=== PATIENT | male | born 1975 | race Caucasian/White ===

== ENCOUNTER 2016-08-21 21:05 | Emergency (ER) | payer BC ==
[2016-08-21] MEDS ORDERED: Hydromorphone 1 mg/ml Ampule IV ONE ×2 (21:17→21:36)
[2016-08-21] MEDS ORDERED: BENADRYL 50 MG/ML IV ONE (21:17)
[2016-08-21] MEDS ORDERED: Sodium Chloride 0.9% 1000 ML 1,000 ML IV STA (21:17)
[2016-08-21] MEDS ORDERED: Zofran 4 MG/2 ML VIAL IV ONE (21:17)
[2016-08-21] MEDS ORDERED: Zofran 4 MG/2 ML VIAL ONE (21:20)
[2016-08-21] MEDS ORDERED: BENADRYL 50 MG/ML ONE (21:20)
[2016-08-21] MEDS ORDERED: Sodium Chloride 0.9% 1000 ML 1,000 ML ONE (21:21)
[2016-08-21] MEDS ORDERED: Hydromorphone 1 mg/ml Ampule ONE ×2 (21:21→21:46)
--- NOTE | 2016-08-21 21:23 | ERPHSYRPT ---
- History of Present Illness Time Seen by Provider: 08/21/16 21:08 Source: patient Patient Subjective Stated Complaint: patient thinks he has kidney stones Triage Nursing Assessment: flank pain down right side and into the front x 2 hours, patient has a history of kidney stones. patient was at home sitting and began experiencing sharp pain in back radiating to the front got very severe and came into the ER. Physician History: CC: right flank pain Hx: 40 y/o patient of Dr Leonard with remote hx of kidney stone disease. He noted rather severe right flank pain radiating to the groin for the past 3 hours. Dribbling urine. No fever or chills. Some nausea without vomiting. No hematuria. Timing/Duration: today Severity: severe Allergies/Adverse Reactions: No Known Drug Allergies Allergy (Unverified 04/03/13 02:51) Home Medications: No Home Meds 04/03/13 [History] Hx Tetanus, Diphtheria Vaccination/Date Given: Yes Hx Influenza Vaccination/Date Given: Yes Hx Pneumococcal Vaccination/Date Given: No Immunizations Up to Date: Yes - Review of Systems Constitutional: No Fever, No Chills Eyes: No Symptoms Ears, Nose, & Throat: No Symptoms Respiratory: No Cough Cardiac: No Chest Pain Abdominal/Gastrointestinal: Nausea, No Abdominal Pain, No Vomiting Genitourinary Symptoms: Hesitancy, Flank Pain (right), No Dysuria, No Hematuria , No Testicle Pain Skin: No Rash Neurological: No Headache All Other Systems: Reviewed and Negative - Past Medical History Pertinent Past Medical History: Yes Neurological History: No Pertinent History ENT History: No Pertinent History Cardiac History: No Pertinent History Respiratory History: No Pertinent History Endocrine Medical History: No Pertinent History Musculoskeletal History: No Pertinent History GI Medical History: No Pertinent History History: Other Psycho-Social History: No Pertinent History Male Reproductive Disorders: No Pertinent History Other Medical History: Remote Kidney Stone - Past Surgical History Past Surgical History: No Neuro Surgical History: No Pertinent History Cardiac: No Pertinent History Respiratory: No Pertinent History Gastrointestinal: No Pertinent History Genitourinary: No Pertinent History Musculoskeletal: No Pertinent History Male Surgical History: No Pertinent History - Social History Smoking Status: Current every day smoker Exposure to second hand smoke: No Drug Use: none Patient Lives Alone: No - Nursing Vital Signs Nursing Vital Signs: Initial Vital Signs Temperature 98.2 F Temperature Source Oral Pulse Rate 81 Respiratory Rate 20 Blood Pressure [Right Arm] 142/96 Pain Intensity [Anterior/ 9 Posterior Back] Pain Intensity 2 - Physical Exam General Appearance: alert, obese Eye Exam: PERRL/EOMI, No scleral icterus Ears, Nose, Throat Exam: normal ENT inspection, moist mucous membranes Neck Exam: normal inspection Respiratory Exam: normal breath sounds, lungs clear Cardiovascular Exam: regular rate/rhythm Gastrointestinal/Abdomen Exam: soft, No tenderness, No distention, No mass, No guarding Male Genitalia Exam: normal genitalia, No hernia, No testicular tenderness Back Exam: normal inspection, CVA tenderness (right) Extremity Exam: normal inspection, normal range of motion Neurologic Exam: alert, oriented x 3, cooperative, sensation nml, No motor deficits Skin Exam: warm, dry, No rash SpO2 Interpretation: normal SpO2: 97 Oxygen Delivery: Room Air - Course Nursing assessment & vital signs reviewed: Yes Ordered Tests: Active Orders 24 hr Category Date Time Status IV Insertion STAT Care 08/21/16 21:17 Active ABDOMEN AND PELVIS W/0 CONTRAS [CT] Stat Exams 08/21/16 21:18 Taken CBC W DIFF Stat Lab 08/21/16 21:24 Completed CMP Stat Lab 08/21/16 21:24 Completed UA W/ MICROSCOPIC Stat Lab 08/21/16 21:20 Completed Medication Summary Generic Name Dose Route Start Last Admin Trade Name Freq PRN Reason Stop Dose Admin Sodium Chloride 1,000 mls @ 999 mls/hr 08/21/16 21:17 08/21/16 21:27 Sodium Chloride 0.9% 1000 Ml IV 08/21/16 22:17 999 mls/hr .Q1H1M STA Administration Discontinued Medications Generic Name Dose Route Start Last Admin Trade Name Freq PRN Reason Stop Dose Admin Hydrocodone Bitart/Acetaminophen 2 tab 08/21/16 22:07 Corinne 5/325 Mg PO 08/21/16 22:08 SENT HOME W/ PATIENT ONE Diphenhydramine HCl 25 mg 08/21/16 21:17 08/21/16 21:26 Benadryl 50 Mg/Ml IV 08/21/16 21:18 25 mg STAT ONE Administration Diphenhydramine HCl Confirm 08/21/16 21:20 Benadryl 50 Mg/Ml Administered 08/21/16 21:21 Dose 50 mg .ROUTE .STK-MED ONE Hydromorphone HCl 1 mg 08/21/16 21:17 08/21/16 21:26 Hydromorphone 1 Mg/Ml Ampule IV 08/21/16 21:18 1 mg STAT ONE Administration Hydromorphone HCl Confirm 08/21/16 21:21 Hydromorphone 1 Mg/Ml Ampule Administered 08/21/16 21:22 Dose 1 mg .ROUTE .STK-MED ONE Hydromorphone HCl 1 mg 08/21/16 21:36 08/21/16 21:48 Hydromorphone 1 Mg/Ml Ampule IV 08/21/16 21:37 1 mg STAT ONE Administration Hydromorphone HCl Confirm 08/21/16 21:46 Hydromorphone 1 Mg/Ml Ampule Administered 08/21/16 21:47 Dose 1 mg .ROUTE .STK-MED ONE Sodium Chloride Confirm 08/21/16 21:21 Sodium Chloride 0.9% 1000 Ml Administered 08/21/16 21:22 Dose 1,000 mls @ ud .ROUTE .STK-MED ONE Ketorolac Tromethamine 30 mg 08/21/16 22:07 Toradol 30 Mg Injection IV 08/21/16 22:08 STAT ONE Ondansetron HCl 4 mg 08/21/16 21:17 08/21/16 21:26 Zofran 4 Mg/2 Ml Vial IV 08/21/16 21:18 4 mg STAT ONE Administration Ondansetron HCl Confirm 08/21/16 21:20 Zofran 4 Mg/2 Ml Vial Administered 08/21/16 21:21 Dose 4 mg .ROUTE .STK-MED ONE Lab/Rad Data: Laboratory Result Diagrams 08/21/16 21:24 08/21/16 21:24 Laboratory Results 08/21/16 08/21/16 08/21/16 Range/Units 21:24 21:24 21:20 WBC 11.2 H (4.0-10.5) K/mm3 RBC 5.15 (4.1-5.6) M/mm3 Hgb 15.7 (12.5-18.0) gm/dl Hct 48.1 (42-50) % MCV 93.4 (78-100) fl MCH 30.5 (26-32) pg MCHC 32.6 (32-36) g/dl RDW 13.2 (11.5-14.0) % Plt Count 203 (150-450) K/mm3 MPV 10.6 H (6-9.5) fl Gran % 62.6 (36.0-66.0) % Lymphocytes % 26.1 (24.0-44.0) % Monocytes % 8.9 (0.0-12.0) % Eosinophils % 2.0 (0.00-5.0) % Basophils % 0.4 (0.0-0.4) % Basophils # 0.04 (0-0.4) Sodium 141 (136-145) mEq/L Potassium 4.2 (3.5-5.1) mEq/L Chloride 105 (98-107) mEq/L Carbon Dioxide 28.9 (21-32) mEq/L Anion Gap 10.9 (5-15) MEQ/L BUN 17 (9-20) mg/dL Creatinine 1.13 (0.55-1.30) mg/dl Estimated GFR > 60 ML/MIN Glucose 126 H (70-110) MG/DL Calcium 9.4 (8.5-10.1) mg/dL Total Bilirubin 0.30 (0.2-1.0) mg/dL AST 26 (15-37) U/L ALT 63 (12-78) U/L Alkaline Phosphatase 87 (46-116) U/L Serum Total Protein 8.0 (6.4-8.2) gm/dL Albumin 3.8 (3.4-5.0) g/dL Ur Collection Type CCMS Urine Color YELLOW (YELLOW) Urine Appearance CLEAR (CLEAR) Urine pH 5.0 (5-6) Ur Specific [place] 1.025 (1.005-1.025) Urine Protein NEGATIVE (Negative) Urine Ketones NEGATIVE (NEGATIVE) Urine Blood 50 (0-5) Jefry/ul Urine Nitrite NEGATIVE (NEGATIVE) Urine Bilirubin NEGATIVE (NEGATIVE) Urine Urobilinogen NORMAL (0-1) mg/dL Ur Leukocyte Esterase NEGATIVE (NEGATIVE) Urine Microscopic RBC 2-5 (0-2) /HPF Urine Microscopic WBC 0-2 (0-5) /HPF Ur Epithelial Cells FEW (FEW) /HPF Urine Glucose NEGATIVE (NEGATIVE) mg/dL Specimen Received 08-21-160 - Progress Progress Note: 08/21/16 21:[address] to evaluate renal stone disease. 08/21/16 22:01 CT abd/pelvis: titus 10:00 PM 08/21/2016: Compared to 04/03/13. New 2-3 mm R UVJ stone producing partial obstruction w/ minimal hydroureter & moderate hydronephrosis. Remaining abd/pel negative. Pain improved with meds. Will release with kidney stone instructions. Counseled pt/family regarding: lab results, diagnosis, need for follow-up, rad results - Departure Time of Disposition: 22:10 Departure Disposition: Home Clinical Impression: Renal colic on right side, right UVJ stone Condition: Stable Critical Care Time: No Referrals: SARA LEONARD [Primary Care Provider] - Instructions: Kidney Stones Additional Instructions: Return for fever, recurrent vomiting, uncontrolled pain or concerns. Rx norco- no driving. Rx zofran for nausea. Follow up with Dr Leonard in 1-2 days. Strain urine to collect stone. Prescriptions: Ondansetron [Zofran Odt] 4 mg PO Q6HPRN PRN #10 tab.rapdis PRN Reason: Nausea/Vomiting Hydrocodone Bit/Acetaminophen [Corinne 5-325 Tablet] 1 each PO Q4-6HPRN PRN #20 tablet PRN Reason: Pain
[2016-08-21 21:30] LABS: BASOPHIL % 0.4 % (0.0-0.4); Granulocytes % 62.6 % (36.0-66.0); Lymphocytes % 26.1 % (24.0-44.0); Mean Cell Volume 93.4 fl (78-100); Mean Corpuscular Hemoglobin 30.5 pg (26-32); Mean Platelet Volume 10.6 fl (6-9.5); Monocytes % 8.9 % (0.0-12.0); Platelet Count 203 K/mm3 (150-450); Red Blood Count 5.15 M/mm3 (4.1-5.6); Red Cell Distribution Width 13.2 % (11.5-14.0); White Blood Count 11.2 K/mm3 (4.0-10.5)
[2016-08-21 21:31] LABS: Bilirubin NEGATIVE (NEGATIVE); Blood 50 Ery/ul (0-5); Collection Type CCMS; Glucose NEGATIVE (NEGATIVE); Leukocyte Esterase NEGATIVE (NEGATIVE)
[2016-08-21 21:38] LABS: ADD URINE CULTURE? NO (NO); COMPLETE URINE MICROSCOPIC? YES; Epithelial Cells FEW /HPF (FEW); WBC 0-2 /HPF (0-5)
[2016-08-21 22:07] LABS: ALBUMIN 3.8 g/dL (3.4-5.0); ALKALINE PHOSPHATASE 87 U/L (46-116); ANION GAP 10.9 MEQ/L (5-15); BLOOD UREA NITROGEN 17 mg/dL (9-20); CHLORIDE 105 mEq/L (98-107); Carbon Dioxide 28.9 mEq/L (21-32); Glucose 126 MG/DL (70-110); Potassium 4.2 mEq/L (3.5-5.1); SGOT/AST 26 U/L (15-37); SGPT/ALT 63 U/L (12-78); SODIUM 141 mEq/L (136-145)
[2016-08-21] MEDS ORDERED: NORCO 5/325 MG PO ONE (22:07)
[2016-08-21] MEDS ORDERED: TORAdol 30 mg Injection IV ONE (22:07)
[2016-08-21] MEDS ORDERED: TORAdol 30 mg Injection ONE (22:10)
[2016-08-21] MEDS ORDERED: NORCO 5/325 MG ONE (22:11)
[2016-08-21 22:38] VITALS: BP 137/76; PULSE 78; O2SAT 98
--- NOTE | 2016-08-22 08:42 | XRAY ---
Indication: Right flank pain. Nausea. History of kidney stone. Multiple contiguous axial images obtained through the abdomen and pelvis without contrast as ordered. Comparison: CT renal stone study April 03, 2013. Lung bases again demonstrates minimal bibasilar dependent atelectasis. Heart is not enlarged. There is now a 2-3 mm right UVJ calculus. The more proximal right ureter is slightly prominent and there is moderate hydronephrosis without perinephric fluid/stranding consistent with partial obstruction. No renal calculus or evidence for obstructive uropathy in the left system. Stomach is distended with food. Noncontrasted bowel loops appear nonobstructed. Normal appendix. No free fluid/air. Remaining liver, gallbladder, pancreas, spleen, adrenal glands, bladder, and aorta appear unremarkable for noncontrast exam. Osseous structures intact. Impression: New 2-3 mm right UVJ calculus producing partial obstruction. CT DI 23.68
== END 2016-08-21 22:37 | disposition home or self-care (01) ==
LOC: ED 21:05
DX: N23 Unspecified renal colic (principal); N20.0 Calculus of kidney; R10.9 Unspecified abdominal pain
CPT/HCPCS: 36000; 36415; 74176; 80053; 81000; 85025; 96360; 96374; 96375; 99284; J1170; J1200; J1885; J2405; A9270-GY

== ENCOUNTER 2019-02-24 08:16 | Emergency (ER) | payer BC ==
[2019-02-24] MEDS ORDERED: Pepcid 20 MG VIAL IV ONE ×2 (08:38→08:44)
[2019-02-24] MEDS ORDERED: Sodium Chloride 0.9% 1000 ML 1,000 ML IV STA (08:38)
[2019-02-24] MEDS ORDERED: BENADRYL 50 MG/ML IV ONE (08:38)
[2019-02-24] MEDS ORDERED: MORPHINE SULFATE 4 MG INJ IV ONE (08:38)
[2019-02-24] MEDS ORDERED: Sodium Chloride 0.9% 1000 ML 1,000 ML ONE (08:44)
[2019-02-24] MEDS ORDERED: MORPHINE SULFATE 4 MG INJ ONE (08:44)
[2019-02-24] MEDS ORDERED: BENADRYL 50 MG/ML ONE (08:44)
--- NOTE | 2019-02-24 08:51 | ERPHSYRPT ---
- History of Present Illness Time Seen by Provider: 02/24/19 08:30 Historian: patient Exam Limitations: no limitations Patient Subjective Stated Complaint: pt here for pain to right side of abd, for 2 days now, worse with movement, no fever or nausea Triage Nursing Assessment: pt alert, walked in, resp easy, skin w/d/p. abd soft tender to touch Physician History: Patient has had non-traumatic RUQ abdominal pain for 2 days. Pain worsened in the evening of 02/23/2019. No evaluation prior to coming into the emergency department. Timing/Duration: day(s) (2) Activities at Onset: none Quality: aching, stabbing Abdominal Pain Onset Location: RUQ Pain Radiation: no radiation Severity of Pain-Max: severe Severity of Pain-Current: moderate Modifying Factors: Worsens With: movement Associated Symptoms: No back, No chest pain, No diaphoresis, No diarrhea, No fever/chills, No fatigue, No headache, No loss of appetite, No nausea, No neck pain, No rash, No shortness of breath, No syncope, No testicular pain, No vomiting, No weakness Previous symptoms: no prior history, no recent treatment Allergies/Adverse Reactions: No Known Drug Allergies Allergy (Verified 02/24/19 08:27) Hx Tetanus, Diphtheria Vaccination/Date Given: Yes Hx Influenza Vaccination/Date Given: No Hx Pneumococcal Vaccination/Date Given: No Immunizations Up to Date: Yes - Review of Systems Constitutional: No Fever, No Chills Eyes: No Eye Pain, No Eye Redness, No Vision Changes Ears, Nose, & Throat: No Mouth Pain, No Mouth Swelling, No Painful Swallowing Respiratory: No Cough, No Dyspnea Cardiac: No Chest Pain, No Edema, No Syncope Abdominal/Gastrointestinal: Abdominal Pain, No Nausea, No Vomiting, No Diarrhea , No Hematemesis, No Hematochezia, No Melena Genitourinary Symptoms: No Dysuria, No Hematuria, No Flank Pain Musculoskeletal: No Back Pain, No Neck Pain Skin: No Rash Neurological: No Dizziness, No Focal Weakness, No Sensory Changes Psychological: No Symptoms Endocrine: No Polydipsia, No Excessive Sweating Hematologic/Lymphatic: No Easy Bleeding, No Easy Bruising All Other Systems: Reviewed and Negative - Past Medical History Pertinent Past Medical History: No Neurological History: No Pertinent History ENT History: No Pertinent History Cardiac History: No Pertinent History Respiratory History: No Pertinent History Endocrine Medical History: No Pertinent History Musculoskeletal History: No Pertinent History GI Medical History: No Pertinent History History: Other Psycho-Social History: No Pertinent History Male Reproductive Disorders: No Pertinent History Other Medical History: Remote Kidney Stone - Past Surgical History Past Surgical History: No Neuro Surgical History: No Pertinent History Cardiac: No Pertinent History Respiratory: No Pertinent History Gastrointestinal: No Pertinent History Genitourinary: No Pertinent History Musculoskeletal: No Pertinent History Male Surgical History: Vasectomy - Social History Smoking Status: Current every day smoker Exposure to second hand smoke: Yes Drug Use: none Patient Lives Alone: Yes - Nursing Vital Signs Nursing Vital Signs: Initial Vital Signs Temperature 98.1 F 02/24/19 08:23 Pulse Rate 94 H 02/24/19 08:23 Respiratory Rate 18 02/24/19 08:23 Blood Pressure 138/111 02/24/19 08:23 O2 Sat by Pulse Oximetry 97 02/24/19 08:23 Pain Scale Pain Intensity 5 - Physical Exam General Appearance: no apparent distress, alert Eye Exam: PERRL/EOMI, eyes nml inspection, No scleral icterus, No pale conjunctivae Ears, Nose, Throat Exam: normal ENT inspection, pharynx normal, moist mucous membranes Neck Exam: normal inspection, non-tender, supple, full range of motion, No Brudzinski, No JVD, No lymphadenopathy Respiratory Exam: normal breath sounds, lungs clear, No respiratory distress, No diminished breath sounds, No accessory muscle use, No crackles/rales, No rhonchi, No wheezing, No stridor Cardiovascular Exam: regular rate/rhythm, normal heart sounds, capillary refill <2 sec Gastrointestinal/Abdomen Exam: soft, normal bowel sounds, tenderness (RUQ only) , No distention, No mass, No guarding, No ecchymosis, No rebound Back Exam: normal inspection, normal range of motion, No CVA tenderness, No vertebral tenderness Extremity Exam: normal inspection, normal range of motion, pelvis stable Neurologic Exam: alert, oriented x 3, cooperative, hide worker II-XII nml as tested, normal mood/affect, sensation nml, No motor deficits Skin Exam: normal color, warm, dry, No rash, No jaundice SpO2 Interpretation: normal SpO2: 97 O2 Delivery: Room Air - Course Nursing assessment & vital signs reviewed: Yes EKG Interpreted by Me: RATE (78), Sinus Rhythm, NORMAL AXIS, NORMAL INTERVALS, NORMAL QRS, NORMAL ST-T, Other (No previous EKG for comparison) - Radiology Ultrasound Exam Gallbladder Ultrasound: Other (per the radiologist's interpretation: Gallbladder wall thickening without cholelithiasis or biliary distention. No pericholecystic fluid. Fatty liver.) Ordered Tests: Active Orders 24 hr Category Date Time Status EKG-ER Only STAT Care 02/24/19 08:38 Active IV Insertion STAT Care 02/24/19 08:38 Active NPO (ED) STAT Care 02/24/19 08:38 Active GALLBLADDER [US] Stat Exams 02/24/19 08:40 Completed AMYLASE Stat Lab 02/24/19 08:50 Completed CBC W DIFF Stat Lab 02/24/19 08:38 Completed CMP Stat Lab 02/24/19 08:50 Completed LIPASE Stat Lab 02/24/19 08:50 Completed Lactic Acid Stat Lab 02/24/19 08:38 Completed PROTIME WITH INR Stat Lab 02/24/19 08:50 Completed TROPONIN Q3H Lab 02/24/19 08:50 Completed TROPONIN Q3H Lab 02/24/19 11:45 Ordered TROPONIN Q3H Lab 02/24/19 14:45 Ordered TROPONIN Q3H Lab 02/24/19 17:45 Ordered TROPONIN Q3H Lab 02/24/19 20:45 Ordered UA W/RFX UR CULTURE Stat Lab 02/24/19 09:05 Completed Medication Summary Discontinued Medications Generic Name Dose Route Start Last Admin Trade Name Freq PRN Reason Stop Dose Admin Diphenhydramine HCl 25 mg 02/24/19 08:38 02/24/19 08:47 Benadryl 50 Mg/Ml IV 02/24/19 08:39 25 mg STAT ONE Administration Diphenhydramine HCl Confirm 02/24/19 08:44 Benadryl 50 Mg/Ml Administered 02/24/19 08:45 Dose 50 mg .ROUTE .STK-MED ONE Famotidine 20 mg 02/24/19 08:38 02/24/19 08:47 Pepcid 20 Mg Vial IV 02/24/19 08:39 20 mg STAT ONE Administration Famotidine Confirm 02/24/19 08:44 Pepcid 20 Mg Vial Administered 02/24/19 08:45 Dose 20 mg IV .STK-MED ONE Sodium Chloride 1,000 mls @ 999 mls/hr 02/24/19 08:38 02/24/19 08:48 Sodium Chloride 0.9% 1000 Ml IV 02/24/19 09:38 999 mls/hr .Q1H1M STA Administration Sodium Chloride Confirm 02/24/19 08:44 Sodium Chloride 0.9% 1000 Ml Administered 02/24/19 08:45 Dose 1,000 mls @ ud .ROUTE .STK-MED ONE Morphine Sulfate 4 mg 02/24/19 08:38 02/24/19 08:47 Morphine Sulfate 4 Mg Inj IV 02/24/19 08:39 4 mg STAT ONE Administration Morphine Sulfate Confirm 02/24/19 08:44 Morphine Sulfate 4 Mg Inj Administered 02/24/19 08:45 Dose 4 mg .ROUTE .STK-MED ONE Lab/Rad Data: Laboratory Result Diagrams 02/24/19 08:38 02/24/19 08:50 Laboratory Results 02/24/19 02/24/19 02/24/19 Range/Units 09:05 08:50 08:50 WBC (4.0-10.5) K/mm3 RBC (4.1-5.6) M/mm3 Hgb (12.5-18.0) gm/dl Hct (42-50) % MCV (78-100) fl MCH (26-32) pg MCHC (32-36) g/dl RDW (11.5-14.0) % Plt Count (150-450) K/mm3 MPV (6-9.5) fl Gran % (36.0-66.0) % Eos # (Auto) (0-0.5) Absolute Lymphs (auto) (1.0-4.6) Absolute Monos (auto) (0.0-1.3) Lymphocytes % (24.0-44.0) % Monocytes % (0.0-12.0) % Eosinophils % (0.00-5.0) % Basophils % (0.0-0.4) % Absolute Granulocytes (1.4-6.9) Basophils # (0-0.4) PT 12.7 (8.83-12.87) SECONDS INR 1.12 (0.8-3.0) Sodium (137-145) mmol/L Potassium (3.5-5.1) mmol/L Chloride (98-107) mmol/L Carbon Dioxide (22-30) mmol/L Anion Gap (5-15) MEQ/L BUN (9-20) mg/dL Creatinine (0.66-1.25) mg/dL Estimated GFR ML/MIN Glucose (74-106) mg/dL Lactic Acid (0.4-2.0) Calcium (8.4-10.2) mg/dL Total Bilirubin (0.2-1.3) mg/dL AST (17-59) U/L ALT (0-50) U/L Alkaline Phosphatase (38-126) U/L Troponin I < 0.012 (0.000-0.034) ng/mL Serum Total Protein (6.3-8.2) g/dL Albumin (3.5-5.0) g/dL Amylase (30-110) U/L Lipase (23-300) U/L Urine Color YELLOW (YELLOW) Urine Appearance CLEAR (CLEAR) Urine pH 6.0 (5-6) Ur Specific [place] 1.020 (1.005-1.025) Urine Protein NEGATIVE (Negative) Urine Ketones NEGATIVE (NEGATIVE) Urine Blood SMALL (0-5) Jefry/ul Urine Nitrite NEGATIVE (NEGATIVE) Urine Bilirubin NEGATIVE (NEGATIVE) Urine Urobilinogen 2 (0-1) mg/dL Ur Leukocyte Esterase NEGATIVE (NEGATIVE) Urine WBC (Auto) NONE (0-5) /HPF Urine RBC (Auto) 6-10 (0-2) /HPF U Epithel Cells (Auto) NONE (FEW) /HPF Urine Bacteria (Auto) RARE (NEGATIVE) /HPF Urine Mucus (Auto) SLIGHT (NEGATIVE) /HPF Urine Culture Reflexed NO (NO) Urine Glucose NEGATIVE (NEGATIVE) mg/dL 02/24/19 02/24/19 02/24/19 Range/Units 08:50 08:38 08:38 WBC 12.6 H (4.0-10.5) K/mm3 RBC 4.94 (4.1-5.6) M/mm3 Hgb 15.3 (12.5-18.0) gm/dl Hct 47.0 (42-50) % MCV 95.1 (78-100) fl MCH 31.0 (26-32) pg MCHC 32.6 (32-36) g/dl RDW 13.4 (11.5-14.0) % Plt Count 193 (150-450) K/mm3 MPV 10.2 H (6-9.5) fl Gran % 66.9 H (36.0-66.0) % Eos # (Auto) 0.20 (0-0.5) Absolute Lymphs (auto) 2.94 (1.0-4.6) Absolute Monos (auto) 1.00 (0.0-1.3) Lymphocytes % 23.4 L (24.0-44.0) % Monocytes % 7.9 (0.0-12.0) % Eosinophils % 1.6 (0.00-5.0) % Basophils % 0.2 (0.0-0.4) % Absolute Granulocytes 8.43 H (1.4-6.9) Basophils # 0.02 (0-0.4) PT (8.83-12.87) SECONDS INR (0.8-3.0) Sodium 141 (137-145) mmol/L Potassium 3.9 (3.5-5.1) mmol/L Chloride 104 (98-107) mmol/L Carbon Dioxide 29 (22-30) mmol/L Anion Gap 11.7 (5-15) MEQ/L BUN 16 (9-20) mg/dL Creatinine 0.76 (0.66-1.25) mg/dL Estimated GFR > 60.0 ML/MIN Glucose 98 (74-106) mg/dL Lactic Acid 0.9 (0.4-2.0) Calcium 9.7 (8.4-10.2) mg/dL Total Bilirubin 0.50 (0.2-1.3) mg/dL AST 25 (17-59) U/L ALT 43 (0-50) U/L Alkaline Phosphatase 94 (38-126) U/L Troponin I (0.000-0.034) ng/mL Serum Total Protein 8.5 H (6.3-8.2) g/dL Albumin 4.5 (3.5-5.0) g/dL Amylase 65 (30-110) U/L Lipase 25 (23-300) U/L Urine Color (YELLOW) Urine Appearance (CLEAR) Urine pH (5-6) Ur Specific [place] (1.005-1.025) Urine Protein (Negative) Urine Ketones (NEGATIVE) Urine Blood (0-5) Jefry/ul Urine Nitrite (NEGATIVE) Urine Bilirubin (NEGATIVE) Urine Urobilinogen (0-1) mg/dL Ur Leukocyte Esterase (NEGATIVE) Urine WBC (Auto) (0-5) /HPF Urine RBC (Auto) (0-2) /HPF U Epithel Cells (Auto) (FEW) /HPF Urine Bacteria (Auto) (NEGATIVE) /HPF Urine Mucus (Auto) (NEGATIVE) /HPF Urine Culture Reflexed (NO) Urine Glucose (NEGATIVE) mg/dL - Progress Progress: improved Progress Note: 02/24/19 10:04 Patient has resolution of RUQ abdominal pain. Patient denies any other symptoms. Patient has no abdominal pain on repeat examination. 02/24/19 10:18 Patient has no indication for inpatient admission at this time as his symptoms have resolved and there is no other concerning sign on his lab work that requires immediate surgical intervention or evaluation. Patient has an appointment for March 11, 2019 4 followup with general surgery. Patient understands he may return back immediately to the emergency department for any worsening of symptoms for immediate reevaluation. Counseled pt/family regarding: lab results, diagnosis, need for follow-up, rad results - Departure Departure Disposition: Home Clinical Impression: RUQ abdominal pain, Biliary colic, Elevated blood pressure reading without diagnosis of hypertension Condition: Good Critical Care Time: No Referrals: SARA MERINO [Primary Care Provider] - 02/25/19 SUKUMAR SALMON [ACTIVE STAFF] - 03/11/19 (you have an appointment with General Surgery on March 11, 2019 at 1:35 pm. Call the office to confirm appointment ) Instructions: Acute Abdomen (Belly Pain), Adult (DC), Gallstones (DC) Additional Instructions: Your gallbladder is thickened on today's ultrasound, which could be explaining your symptoms over the past two days. Follow-up with your surgical referral to determine further testing and treatment options as needed. Return immediately to the emergency department if any worse abdominal pain, new fevers, new vomiting, new back pain or any other concerning signs of symptoms that were not present at today's emergency department visit for immediate re-evaluation in the emergency department. Discharge/Care Plan TELMA MUÑOZ was seen on 02/24/19 in the Emergency Room. The patient was counseled regarding Diagnosis,Lab results, Imaging studies, need for follow up and when to return to the Emergency Room. Prescriptions given: Jermaine Rueda Discharge Note I have spoken with the patient and family. I have explained the patient's condition, diagnosis and treatment plan based on the information available to me at this time. I have answered the patient's and family's questions and addressed any concerns. The patient and family have a good understanding of the patient's diagnosis, condition and treatment plan as can be expected at this point. The vital signs have been stable. The patient's condition is stable and appropriate for discharge from the emergency department. The patient will pursue further outpatient evaluation with primary care provider and general surgery and are agreeable to this plan of care and follow- up instructions have been explained in detail. The patient and family have received these instruction. The patient and family are aware that any significant change in condition or worsening of symptoms should prompt an immediate return to this or the closest emergency department or call 911. Prescriptions: Hydrocodone/APAP 5-325 Tab^^^ [Alexander 5-325 Tablet^^^] 1 tab PO Q6HPRN PRN #8 tablet MDD 6 PRN Reason: Pain Etodolac 400 mg [Lodine 400 mg] 400 mg PO BID PRN PRN #20 tablet PRN Reason: Pain
[2019-02-24 08:56] LABS: Absolute Neutrophil Ct (ANC) 8.43 (1.4-6.9); BASOPHIL % 0.2 % (0.0-0.4); Basophil (Absolute #) 0.02 (0-0.4); Eosinophil % 1.6 % (0.00-5.0); Hemoglobin 15.3 gm/dl (12.5-18.0); Lymphocyte (Absolute #) 2.94 (1.0-4.6); Lymphocytes % 23.4 % (24.0-44.0); Mean Cell Volume 95.1 fl (78-100); Mean Corpuscular Hgb Concent. 32.6 g/dl (32-36); Mean Platelet Volume 10.2 fl (6-9.5); Monocytes % 7.9 % (0.0-12.0); Neutrophil % 66.9 % (36.0-66.0); Platelet Count 193 K/mm3 (150-450); Red Blood Count 4.94 M/mm3 (4.1-5.6); Red Cell Distribution Width 13.4 % (11.5-14.0); White Blood Count 12.6 K/mm3 (4.0-10.5)
[2019-02-24 09:02] LABS: INR 1.12 (0.8-3.0); PROTIME 12.7 SECONDS (8.83-12.87)
[2019-02-24 09:13] LABS: ALBUMIN 4.5 g/dL (3.5-5.0); ALKALINE PHOSPHATASE 94 U/L (38-126); AMYLASE 65 U/L (30-110); ANION GAP 11.7 MEQ/L (5-15); BLOOD UREA NITROGEN 16 mg/dL (9-20); CHLORIDE 104 mmol/L (98-107); Calcium 9.7 mg/dL (8.4-10.2); Carbon Dioxide 29 mmol/L (22-30); Creatinine 1 0.76 mg/dL (0.66-1.25); Glucose 98 mg/dL (74-106); LIPASE 25 U/L (23-300); Potassium 3.9 mmol/L (3.5-5.1); SGOT/AST 25 U/L (17-59); SGPT/ALT 43 U/L (0-50); SODIUM 141 mmol/L (137-145); Total Protein 8.5 g/dL (6.3-8.2)
[2019-02-24 09:22] LABS: Appearance CLEAR (CLEAR); Bacteria RARE /HPF (NEGATIVE); Bilirubin NEGATIVE (NEGATIVE); Blood SMALL Ery/ul (0-5); Glucose NEGATIVE (NEGATIVE); Ketones NEGATIVE (NEGATIVE); Leukocyte Esterase NEGATIVE (NEGATIVE); Mucus SLIGHT /HPF (NEGATIVE); Nitrite NEGATIVE (NEGATIVE); Protein,Urine Dip NEGATIVE (Negative); Urobilinogen 2 mg/dL (0-1)
--- NOTE | 2019-02-24 09:51 | XRAY ---
Indication: Right upper quadrant pain. Two-dimensional right upper quadrant abdominal sonogram performed. Comparison: None Pancreas not well seen. Gallbladder normally distended without gallstones. There is gallbladder wall thickening measuring 3.3 mm but no pericholecystic fluid. Common bile duct measures 5.7 mm. Diffuse fatty echogenic liver without focal solid/cystic mass or ascites. Remaining visualized right kidney appear unremarkable. Right kidney measures 13.5 cm in length. Impression: 1. Pancreas not well evaluated. 2. Gallbladder wall thickening without cholelithiasis or biliary distention. 3. Fatty liver.
[2019-02-24 10:46] VITALS: BP 142/69; PULSE 68; O2SAT 98
== END 2019-02-24 10:49 | disposition home or self-care (01) ==
LOC: ED 08:16
DX: R10.11 Right upper quadrant pain (principal); K80.50 Calculus of bile duct without cholangitis or cholecystitis without obstruction; R03.0 Elevated blood-pressure reading, without diagnosis of hypertension
CPT/HCPCS: 36000; 36415; 76705; 80053; 81001; 82150; 83605; 83690; 84484; 85025; 85610; 93005; 96360; 96374; 96375; 99284; J1200; J2270

== ENCOUNTER 2022-02-15 06:10 | Day surgery (SDC) | payer BC ==
[2022-02-15] MEDS ORDERED: Lactated Ringers 1,000 ML IV ONE (06:33)
[2022-02-15] MEDS ORDERED: Lactated Ringers 1,000 ML IV SCH (07:00)
[2022-02-15] MEDS ORDERED: Versed 2 MG/2 ML Injection ONE (07:55)
[2022-02-15] MEDS ORDERED: DIPRIVAN 200 MG/20 ML IV ONE (07:55)
--- NOTE | 2022-02-15 08:28 | OP ---
SURGERY DATE/TIME: 02/15/2022 0757 PREOPERATIVE DIAGNOSIS: Screening exam. POSTOPERATIVE DIAGNOSIS: Normal colon. PROCEDURE: Colonoscopy. SURGEON: Dr. Tristan Leonard. ANESTHESIA: MAC. Medications given by anesthesia department. HISTORY: The patient is a 46-year-old white male patient presenting now for screening colonoscopy. The patient is concerned because of an uncle and a grandmother both with colon cancer. The patient was felt the need to have endoscopic evaluation. He was appraised of the risks of the procedure including the risk of perforation, phlebitis, untoward reaction to medication, bleeding and missed lesions. The patient verbalized his understanding and desired to have the procedure performed. DESCRIPTION OF PROCEDURE: The patient was given the medications by the anesthesia department. He had continuous pulse oximetry, ECG monitoring and intermittent blood pressure monitoring during the examination. He was placed in the left lateral decubitus position. A digital rectal examination was performed and revealed normal anal sphincter tone, no masses. The flexible Olympus pediatric colonoscope was used to intubate the rectum. A view of the colon was developed sequentially to the cecum. Upon insertion and withdrawal, including a retroflex view in the rectum, no mucosal lesions were encountered. The scope was removed from the patient who tolerated the procedure well and was sent back to outpatient recovery in good condition. The prep was noted to be good.
[2022-02-15 08:54] VITALS: BP 150/87; PULSE 77; O2SAT 97
== END 2022-02-15 09:00 | disposition home or self-care (01) ==
LOC: SDC 06:10
PROVIDERS: ATTEND Family Medicine
DX: Z12.11 Encounter for screening for malignant neoplasm of colon (principal)
CPT/HCPCS: J2250; J2704

== ENCOUNTER 2023-07-19 22:53 | Emergency (ER) | payer BC ==
--- NOTE | 2023-07-19 23:03 | ERPHSYRPT ---
- History of Present Illness Time Seen by Provider: 07/19/23 23:03 Historian: patient Exam Limitations: no limitations Physician History: 47-year-old male presents with cough, congestion and shortness of breath since Friday. He had a close contact who recently had COVID. He has no history of lung issues. He denies productive cough. He denies any wheezing at this time. No chest pain today. No swelling in his lower legs. Patient does have a history of high blood pressure and was on enalapril, but developed a dry cough so medication was changed, but he is not taking the new medication because it made him feel off. He denies fevers, but does have chills. Timing/Duration: day(s) (4) Activities at Onset: rest Quality: other (no chest pain) Location: other (na) Chest Pain Radiation: no radiation Severity of Pain-Max: none Severity of Pain-Current: none Modifying Factors: Improves With: nothing Associated Symptoms: shortness of breath, cough, chills, fatigue, No nausea, No vomiting, No palpitations, No heartburn, No abdominal pain, No hurts to breathe, No diaphoresis, No fever, No edema Nitro Today/Relief: no nitro taken today Aspirin Treatment Today: no aspirin today Allergies/Adverse Reactions: No Known Drug Allergies Allergy (Verified 02/15/22 06:53) Hx Tetanus, Diphtheria Vaccination/Date Given: Yes Hx Influenza Vaccination/Date Given: No Hx Pneumococcal Vaccination/Date Given: No - Review of Systems All Other Systems: Reviewed and Negative - Past Medical History Pertinent Past Medical History: No Neurological History: No Pertinent History ENT History: No Pertinent History Cardiac History: Arrhythmia, Hypertension Respiratory History: No Pertinent History, Sleep Apnea Endocrine Medical History: No Pertinent History Musculoskeletal History: No Pertinent History GI Medical History: No Pertinent History History: Other Psycho-Social History: No Pertinent History Male Reproductive Disorders: No Pertinent History Other Medical History: Remote Kidney Stone - Past Surgical History Past Surgical History: Yes Neuro Surgical History: No Pertinent History Cardiac: No Pertinent History Respiratory: No Pertinent History Gastrointestinal: Cholecystectomy Genitourinary: No Pertinent History Musculoskeletal: No Pertinent History Male Surgical History: Vasectomy - Social History Smoking Status: Former smoker Exposure to second hand smoke: Yes Drug Use: none Patient Lives Alone: Yes - Nursing Vital Signs Nursing Vital Signs: Initial Vital Signs Temperature 98.8 F 07/19/23 22:54 Pulse Rate 103 H 07/19/23 22:54 Respiratory Rate 16 07/19/23 22:54 Blood Pressure 164/100 07/19/23 22:54 O2 Sat by Pulse Oximetry 95 07/19/23 22:54 Pain Scale Pain Intensity 6 - Physical Exam General Appearance: no apparent distress, obese Eye Exam: eyes nml inspection Ears, Nose, Throat Exam: TM abnormal (L) (erythematous, bulging), pharyngeal erythema, No tonsillar exudate Neck Exam: supple, full range of motion, lymphadenopathy Respiratory Exam: airway intact, diminished breath sounds, No respiratory distress Cardiovascular Exam: tachycardia, capillary refill <2 sec, No edema Extremity Exam: normal inspection Neurologic Exam: alert, oriented x 3, cooperative Skin Exam: normal color, warm, dry, No rash SpO2 Interpretation: normal O2 Delivery: Room Air - Course Nursing assessment & vital signs reviewed: Yes EKG Interpreted by Me: RATE (100), Sinus Tach, NORMAL AXIS, NORMAL INTERVALS, NORMAL QRS Ordered Tests: Active Orders 24 hr Category Date Time Status CHEST 1 VIEW (PORTABLE) Stat Exams 07/19/23 23:16 Taken BLOOD CULTURE Stat Lab 07/19/23 23:46 Received CBC W DIFF Stat Lab 07/19/23 23:22 Completed CMP Stat Lab 07/19/23 23:22 Completed D-DIMER QUANTITATIVE Stat Lab 07/19/23 23:46 Completed Lactic Acid Stat Lab 07/19/23 23:15 Completed MAGNESIUM Stat Lab 07/19/23 23:22 Completed VENOUS BLOOD GAS Stat Lab 07/19/23 23:16 Completed Respiratory Therapy Assessment ONCE RT 07/19/23 23:45 Completed Medication Summary Discontinued Medications Generic Name Dose Route Start Last Admin Trade Name Kwesiq PRN Reason Stop Dose Admin Albuterol/Ipratropium 3 ml 07/19/23 23:15 07/19/23 23:25 Ipratropium/Albuterol Sulfate 3 Ml Ampul.Neb IH 07/19/23 23:16 3 ml STAT ONE Administration Albuterol/Ipratropium Confirm 07/19/23 23:23 Ipratropium/Albuterol Sulfate 3 Ml Ampul.Neb Administered 07/19/23 23:24 Dose 3 ml IH .STK-MED ONE Azithromycin 500 mg 07/20/23 00:32 07/20/23 00:34 Azithromycin 250 Mg Tablet PO 07/20/23 00:33 500 mg STAT ONE Administration Azithromycin Confirm 07/20/23 00:32 Azithromycin 250 Mg Tablet Administered 07/20/23 00:33 Dose 500 mg .ROUTE .STK-MED ONE Methylprednisolone Sodium 0 mg 07/19/23 23:15 07/19/23 23:59 Succinate 125 mg/ Sterile IV 07/19/23 23:16 125 mg Water 2 ml STAT ONE Administration Sodium Chloride 1,000 mls @ 999 mls/hr 07/19/23 23:15 07/20/23 00:00 Sodium Chloride 0.9% 1000 Ml IV 07/20/23 00:15 999 mls/hr .Q1H1M STA Administration Ceftriaxone Sodium 1 gm in 100 mls @ 200 mls/hr 07/19/23 23:15 07/20/23 00:30 Rocephin 1 Gm / 100 Ml Nacl IV 07/19/23 23:44 Infused STAT ONE Infusion Azithromycin 500 mg in 250 mls @ 250 mls/hr 07/19/23 23:15 07/20/23 00:34 Zithromax 500 Mg/ 250 Ml Nacl Premix IV 07/20/23 00:14 Not Given STAT STA Sodium Chloride Confirm 07/19/23 23:53 Sodium Chloride 0.9% 1000 Ml Administered 07/19/23 23:54 Dose 1,000 mls @ ud .ROUTE .STK-MED ONE Ceftriaxone Sodium Confirm 07/19/23 23:53 Rocephin 1 Gm / 100 Ml Nacl Administered 07/19/23 23:54 Dose 1 gm in 100 mls @ ud IV .STK-MED ONE Azithromycin Confirm 07/20/23 00:12 Zithromax 500 Mg/ 250 Ml Nacl Premix Administered 07/20/23 00:13 Dose 500 mg in 250 mls @ ud IV .STK-MED ONE Labetalol HCl 10 mg 07/19/23 23:19 07/19/23 23:59 Labetalol Hcl 20 Mg/4 Ml Disp.Syringe IV 07/19/23 23:20 10 mg STAT ONE Administration Labetalol HCl Confirm 07/19/23 23:53 Labetalol Hcl 20 Mg/4 Ml Disp.Syringe Administered 07/19/23 23:54 Dose 20 mg IV .STK-MED ONE Methylprednisolone Sodium Succinate Confirm 07/19/23 23:53 Methylprednis Sod Succ 125 Mg/2 Ml Vial Administered 07/19/23 23:54 Dose 125 mg .ROUTE .[employer]-MED ONE Sterile Water Confirm 07/19/23 23:53 Water For Injection,Sterile 10 Ml Vial Administered 07/19/23 23:54 Dose 10 ml IJ .STK-MED ONE Lab/Rad Data: Laboratory Result Diagrams 07/19/23 23:22 07/19/23 23:22 Laboratory Results 07/19/23 07/19/23 07/19/23 Range/Units 23:46 23:22 23:22 WBC (4.0-10.5) x10^3/uL RBC (4.1-5.6) x10^6/uL Hgb (12.5-18.0) g/dL Hct (42-50) % MCV (78-100) fL MCH (26-32) pg MCHC (32-36) g/dL RDW (11.5-14.0) % Plt Count (150-450) x10^3/uL MPV (7.5-11.0) fL Gran % (36.0-66.0) % Immature Gran % (Auto) (0.00-0.4) % Nucleat RBC Rel Count (0.00-0.1) % Eos # (Auto) (0-0.5) x10^3/uL Immature Gran # (Auto) (0.00-0.03) x10^3u/L Absolute Lymphs (auto) (1.0-4.6) x10^3/uL Absolute Monos (auto) (0.0-1.3) x10^3/uL Absolute Nucleated RBC (0.00-0.01) x10^3u/L Lymphocytes % (24.0-44.0) % Monocytes % (0.0-12.0) % Eosinophils % (0.00-5.0) % Basophils % (0.0-0.4) % Absolute Granulocytes (1.4-6.9) x10^3/uL Basophils # (0-0.4) x10^3/uL D-Dimer 0.38 (0.0-0.50) mg/L pO2/FiO2 Ratio % VBG pH (7.32-7.42) VBG pCO2 at Pat Temp (42-55) mm/Hg VBG pO2 at Pat Temp (25-40) mm/Hg VBG HCO3 (22-28) meq/L VBG O2 Sat (Dung) (95-100) VBG Base Excess (-2.0-2.0) VBG Hemoglobin VBG Carboxyhemoglobin (0.0-6.9) % T HGB POC Potassium (3.5-5.1) Sodium 138 (135-145) mmol/L Potassium 3.9 (3.5-5.1) mmol/L Chloride 104 (98-107) mmol/L Carbon Dioxide 28 (22-30) mmol/L Anion Gap 10.4 (5-15) MEQ/L BUN 21 H (9-20) mg/dL Creatinine 0.97 (0.66-1.25) mg/dL Estimated GFR 96.9 ML/MIN Glucose 214 H (74-106) mg/dL Lactic Acid (0.4-2.0) Calcium 9.1 (8.4-10.2) mg/dL Magnesium 1.8 (1.6-2.3) mg/dL Total Bilirubin 0.50 (0.2-1.3) mg/dL AST 39 (17-59) U/L ALT 52 H (0-50) U/L Alkaline Phosphatase 138 H (38-126) U/L Serum Total Protein 8.3 H (6.3-8.2) g/dL Albumin 4.3 (3.5-5.0) g/dL Influenza Type A Ag NEGATIVE (NEGATIVE) Influenza Type B Ag NEGATIVE (NEGATIVE) RSV (PCR) NEGATIVE (NEGATIVE) SARS-CoV-2 (PCR) NEGATIVE (NEGATIVE) 07/19/23 07/19/23 07/19/23 Range/Units 23:22 23:16 23:15 WBC 12.3 H (4.0-10.5) x10^3/uL RBC 4.85 (4.1-5.6) x10^6/uL Hgb 14.7 (12.5-18.0) g/dL Hct 45.6 (42-50) % MCV 94.0 (78-100) fL MCH 30.3 (26-32) pg MCHC 32.2 (32-36) g/dL RDW 12.8 (11.5-14.0) % Plt Count 199 (150-450) x10^3/uL MPV 10.7 (7.5-11.0) fL Gran % 67.0 H (36.0-66.0) % Immature Gran % (Auto) 0.2 (0.00-0.4) % Nucleat RBC Rel Count 0.0 (0.00-0.1) % Eos # (Auto) 0.32 (0-0.5) x10^3/uL Immature Gran # (Auto) 0.03 (0.00-0.03) x10^3u/L Absolute Lymphs (auto) 2.60 (1.0-4.6) x10^3/uL Absolute Monos (auto) 1.10 (0.0-1.3) x10^3/uL Absolute Nucleated RBC 0.00 (0.00-0.01) x10^3u/L Lymphocytes % 21.1 L (24.0-44.0) % Monocytes % 8.9 (0.0-12.0) % Eosinophils % 2.6 (0.00-5.0) % Basophils % 0.2 (0.0-0.4) % Absolute Granulocytes 8.26 H (1.4-6.9) x10^3/uL Basophils # 0.03 (0-0.4) x10^3/uL D-Dimer (0.0-0.50) mg/L pO2/FiO2 Ratio 21.0 % VBG pH 7.50 H (7.32-7.42) VBG pCO2 at Pat Temp 39 L (42-55) mm/Hg VBG pO2 at Pat Temp 133 H (25-40) mm/Hg VBG HCO3 30.4 H* (22-28) meq/L VBG O2 Sat (Dung) 98.8 (95-100) VBG Base Excess 6.7 H (-2.0-2.0) VBG Hemoglobin 15.4 VBG Carboxyhemoglobin 4.9 (0.0-6.9) % T HGB POC Potassium 5.0 (3.5-5.1) Sodium (135-145) mmol/L Potassium (3.5-5.1) mmol/L Chloride (98-107) mmol/L Carbon Dioxide (22-30) mmol/L Anion Gap (5-15) MEQ/L BUN (9-20) mg/dL Creatinine (0.66-1.25) mg/dL Estimated GFR ML/MIN Glucose (74-106) mg/dL Lactic Acid 1.9 (0.4-2.0) Calcium (8.4-10.2) mg/dL Magnesium (1.6-2.3) mg/dL Total Bilirubin (0.2-1.3) mg/dL AST (17-59) U/L ALT (0-50) U/L Alkaline Phosphatase (38-126) U/L Serum Total Protein (6.3-8.2) g/dL Albumin (3.5-5.0) g/dL Influenza Type A Ag (NEGATIVE) Influenza Type B Ag (NEGATIVE) RSV (PCR) (NEGATIVE) SARS-CoV-2 (PCR) (NEGATIVE) - Departure Departure Disposition: Home Clinical Impression: Community acquired pneumonia, Hyperglycemia, Elevated liver enzymes, SOB (shortness of breath) Condition: Good Critical Care Time: No Referrals: SARA MERINO [Primary Care Provider] - Follow up/PCP as directed Instructions: Pneumonia, Adult (DC) Prescriptions: Amox Tr/Potass Clav. 875 mg [Augmentin 875-125 Tablet] 875 mg PO BID 7 Days #14 tablet Ipratropium/Albuterol Sulfate [Combivent Respimat Inhal Empire] 4 gm IH TID PRN #1 inh PRN Reason: Shortness Of Breath predniSONE [Prednisone] 50 mg PO DAILY 5 Days #5 tablet Azithromycin 250 mg [Zithromax 250 MG TABLET] 250 mg PO DAILY 4 Days #4 tablet
[2023-07-19 23:10] VITALS: TEMP 98.8
[2023-07-19] MEDS ORDERED: DUONEB 0.5-3 MG/3 ml Neb IH ONE (23:23)
[2023-07-19] MEDS: DUONEB 0.5-3 MG/3 ml Neb IH ONE (23:25)
[2023-07-19 23:26] LABS: Absolute Neutrophil Ct (ANC) 8.26 x10^3/uL (1.4-6.9); BASOPHIL % 0.2 % (0.0-0.4); Basophil (Absolute #) 0.03 x10^3/uL (0-0.4); Eosinophil % 2.6 % (0.00-5.0); Eosinophil (Absolute #) 0.32 x10^3/uL (0-0.5); Hematocrit 45.6 % (42-50); Hemoglobin 14.7 g/dL (12.5-18.0); IMMATURE GRAN # 0.03 x10^3u/L (0.00-0.03); IMMATURE GRAN % 0.2 % (0.00-0.4); Lymphocytes % 21.1 % (24.0-44.0); Mean Corpuscular Hemoglobin 30.3 pg (26-32); Mean Corpuscular Hgb Concent. 32.2 g/dL (32-36); Mean Platelet Volume 10.7 fL (7.5-11.0); Monocytes % 8.9 % (0.0-12.0); Platelet Count 199 x10^3/uL (150-450); Red Blood Count 4.85 x10^6/uL (4.1-5.6); Red Cell Distribution Width 12.8 % (11.5-14.0); White Blood Count 12.3 x10^3/uL (4.0-10.5)
[2023-07-19 23:39] LABS: VBG BASE EXCESS 6.7 (-2.0-2.0); VBG CARBOXYHEMOGLOBIN 4.9 % T HGB (0.0-6.9); VBG HCO3- 30.4 meq/L (22-28); VBG HEMOGLOBIN 15.4; VBG O2 SATURATION 98.8 (95-100); VBG pH 7.5 (7.32-7.42)
[2023-07-19] MEDS ORDERED: Sterile H2O 10 ml IJ ONE (23:53)
[2023-07-19] MEDS ORDERED: solu-MEDROL ONE (23:53)
[2023-07-19] MEDS ORDERED: ROCEPHIN 1 GM / 100 ML NaCl 1 GM/100 ML IVPB IV ONE (23:53)
[2023-07-19] MEDS ORDERED: TRANDATE 20 MG/4 ML SYRINGE IV ONE (23:53)
[2023-07-19] MEDS ORDERED: Sodium Chloride 0.9% 1000 ML 1,000 ML ONE (23:53)
[2023-07-19] MEDS: TRANDATE 20 MG/4 ML SYRINGE IV ONE (23:59)
[2023-07-19] MEDS: solu-MEDROL 125 MG, Sterile H2O 10 ml 2 ML IV ONE (23:59)
[2023-07-20] MEDS: ROCEPHIN 1 GM / 100 ML NaCl 1 GM/100 ML IVPB IV ONE
[2023-07-20] MEDS: Sodium Chloride 0.9% 1000 ML 1,000 ML IV STA
[2023-07-20 00:02] LABS: INFLUENZA A NEGATIVE (NEGATIVE); INFLUENZA B NEGATIVE (NEGATIVE); RESPIRATORY SYNCTIAL VIRUS NEGATIVE (NEGATIVE); SARS-CoV-2 Xpert Express NEGATIVE (NEGATIVE)
[2023-07-20] MEDS ORDERED: Zithromax 500 MG/ 250 ML NaCl Premix 0 MG/0 ML IVPB IV ONE (00:12)
[2023-07-20 00:15] LABS: ALBUMIN 4.3 g/dL (3.5-5.0); ANION GAP 10.4 MEQ/L (5-15); BILIRUBIN,TOTAL 0.5 mg/dL (0.2-1.3); Calcium 9.1 mg/dL (8.4-10.2); Creatinine 1 0.97 mg/dL (0.66-1.25); EST GLOMERULAR FILTRATION RATE 96.9 ML/MIN; MAGNESIUM 1.8 mg/dL (1.6-2.3); Potassium 3.9 mmol/L (3.5-5.1); Total Protein 8.3 g/dL (6.3-8.2)
[2023-07-20] MEDS ORDERED: Zithromax 250 MG TABLET ONE (00:32)
[2023-07-20] MEDS: Zithromax 250 MG TABLET PO ONE (00:34)
[2023-07-20] MEDS: Zithromax 500 MG/ 250 ML NaCl Premix 500 MG/250 ML IVPB IV STA (00:34)
[2023-07-20 00:37] VITALS: BP 149/86; PULSE 97; RESP 13; O2SAT 95
--- NOTE | 2023-07-20 06:49 | XRAY ---
Indication: Short of breath. Comparison: None Portable chest demonstrates minimal right base infiltrate/atelectasis and small incidental right apical calcified granuloma. Remaining heart and lungs unremarkable. Bony thorax intact.
== END 2023-07-20 01:04 | disposition home or self-care (01) ==
LOC: ED 22:53
DX: J18.9 Pneumonia, unspecified organism (principal); R06.02 Shortness of breath; R73.9 Hyperglycemia, unspecified; R94.5 Abnormal results of liver function studies; R05.1 Acute cough; I10 Essential (primary) hypertension; Z79.899 Other long term (current) drug therapy
CPT/HCPCS: 0241U; 36415; 71045; 80053; 82805; 83036; 83605; 83735; 85025; 85379; 87040; 94640; 96365; 96374; 99284; J0456; J0696; J2919; A9270-GY